=== PATIENT | female | born 1960 | race Caucasian/White ===

== ENCOUNTER 2017-11-09 18:19 | Outpatient (REF) | payer MEDICARE, MEDICAID, SELFPAY ==
[2017-11-09 21:49] LABS: TSH (W/Ref FT4) 3.96 uIU/mL (0.358-3.74); Uric Acid 7.2 mg/dL (2.6-6.0)
[2017-11-09 22:15] LABS: FREE T4 1.19 ng/dL (0.76-1.46)
== END 2017-11-09 18:20 ==
LOC: NCHCN 18:19
PROVIDERS: PCP Family Medicine; Visit Provider Family Medicine
DX: E03.9 Hypothyroidism, unspecified (principal); M13.80 Other specified arthritis, unspecified site
CPT/HCPCS: 84439; 84443; 84550

== ENCOUNTER 2018-08-08 12:30 | Outpatient (REF) | payer MEDICARE, MEDICAID, SELFPAY ==
[2018-08-08 21:23] LABS: ALT 38 U/L (12-78); AST 28 U/L (15-37); Albumin 3.3 g/dL (3.4-5.0); Alkaline Phosphatase 138 U/L (46-116); Anion Gap 5.3 mmol/L (3-11); BUN 16 mg/dL (7-18); Bilirubin, Total 0.3 mg/dL (0.2-1.0); CO2 30.7 mmol/L (21.0-32.0); CREATININE 1.08 mg/dL (0.55-1.02); Calcium 8.9 mg/dL (8.5-10.1); Chloride 106 mmol/L (98-107); Estimated GFR 52.48 (mL/min/1.73m2); Glucose 88 mg/dL (70-100); Potassium 4.9 mmol/L (3.5-5.1); Sodium 142 mmol/L (136-145); TSH (W/Ref FT4) 1.93 uIU/mL (0.358-3.74); Total Protein 7.1 g/dL (6.4-8.2)
[2018-08-08 22:24] LABS: Hemoglobin A1C 5.4 % (4.5-6.2)
== END 2018-08-08 12:50 ==
LOC: NCHCN 12:30
PROVIDERS: PCP Family Medicine; Visit Provider Family Medicine
DX: E03.9 Hypothyroidism, unspecified (principal); R79.89 Other specified abnormal findings of blood chemistry; E66.01 Morbid (severe) obesity due to excess calories
CPT/HCPCS: 80053; 83036; 84443

== ENCOUNTER 2019-08-08 11:53 | Outpatient (REF) | payer MEDICARE, MEDICAID, SELFPAY ==
[2019-08-08 20:26] LABS: Hemoglobin A1C 5.7 % (3.8-5.6)
[2019-08-08 20:30] LABS: TSH 2.44 uIU/mL (0.36-3.74)
== END 2019-08-08 12:13 ==
LOC: NCHCN 11:53
PROVIDERS: PCP Family Medicine; Visit Provider Family Medicine
DX: E03.9 Hypothyroidism, unspecified (principal); R73.09 Other abnormal glucose; Z13.1 Encounter for screening for diabetes mellitus
CPT/HCPCS: 83036; 84443

== ENCOUNTER 2020-01-08 10:44 | Outpatient (REF) | payer MEDICARE, MEDICAID, SELFPAY ==
[2020-01-08 21:51] LABS: Hemoglobin A1C 5.3 % (<5.7)
[2020-01-08 22:09] LABS: ALT 38 U/L (14-59); AST 29 U/L (15-37); Albumin 3.6 g/dL (3.4-5.0); Alkaline Phosphatase 110 U/L (46-116); Anion Gap 3.5 mmol/L (3-11); BUN 18 mg/dL (7-18); Bilirubin, Total 0.6 mg/dL (0.2-1.0); CO2 32.5 mmol/L (21.0-32.0); CREATININE 1.06 mg/dL (0.55-1.02); Calcium 9.4 mg/dL (8.5-10.1); Calculated LDL 116 mg/dL (<100); Chloride 106 mmol/L (98-107); Cholesterol 183 mg/dL (<200); Estimated GFR 53.43 (mL/min/1.73m2); Glucose 92 mg/dL (74-106); HDL Cholesterol 47 mg/dL (40-60); Potassium 4.2 mmol/L (3.5-5.1); Sodium 142 mmol/L (136-145); Total Protein 7.2 g/dL (6.4-8.2); Triglyceride 104 mg/dL (<150)
== END 2020-01-08 11:04 ==
LOC: NCHCN 10:44
PROVIDERS: PCP Family Medicine; Visit Provider Family Medicine
DX: R73.03 Prediabetes (principal); M10.9 Gout, unspecified; E03.9 Hypothyroidism, unspecified
CPT/HCPCS: 80053; 80061; 83036; 84550

== ENCOUNTER 2020-02-05 12:00 | Outpatient (REF) | payer MEDICARE, MEDICAID, SELFPAY ==
[2020-02-05 22:45] LABS: Uric Acid 4.5 mg/dL (2.6-6.0)
== END 2020-02-05 12:20 ==
LOC: NCHCN 12:00
PROVIDERS: PCP Family Medicine; Visit Provider Family Medicine
DX: M10.9 Gout, unspecified (principal)
CPT/HCPCS: 84550

== ENCOUNTER 2021-01-09 11:46 | Outpatient (REF) | payer MEDICARE, MEDICAID, SELFPAY ==
[2021-01-09 14:44] LABS: ALT 46 U/L (14-59); AST 37 U/L (15-37); Albumin 3.4 g/dL (3.4-5.0); Alkaline Phosphatase 143 U/L (46-116); Anion Gap 4.6 mmol/L (3-11); BUN 18 mg/dL (7-18); Bilirubin, Total 0.4 mg/dL (0.2-1.0); CO2 32.4 mmol/L (21.0-32.0); CREATININE 1.1 mg/dL (0.55-1.02); Calcium 9.1 mg/dL (8.5-10.1); Chloride 105 mmol/L (98-107); Estimated GFR 51.02 (mL/min/1.73m2); Glucose 73 mg/dL (74-106); Potassium 4.6 mmol/L (3.5-5.1); Sodium 142 mmol/L (136-145); TSH 4.64 uIU/mL (0.36-3.74); Total Protein 7.4 g/dL (6.4-8.2); Uric Acid 5.3 mg/dL (2.6-6.0)
[2021-01-09 16:40] LABS: Calculated LDL 133 mg/dL (<100); Cholesterol 219 mg/dL (<200); HDL Cholesterol 68 mg/dL (40-60); Triglyceride 91 mg/dL (<150)
== END 2021-01-09 11:47 | disposition home or self-care (01) ==
LOC: NCHCN 11:46
PROVIDERS: PCP Family Medicine; Visit Provider Family Medicine
DX: E03.9 Hypothyroidism, unspecified (principal); E78.5 Hyperlipidemia, unspecified; E66.01 Morbid (severe) obesity due to excess calories; M10.9 Gout, unspecified; Z00.00 Encounter for general adult medical examination without abnormal findings
CPT/HCPCS: 80053; 80061; 84443; 84550

== ENCOUNTER 2021-06-03 16:56 | Outpatient (REF) | payer MEDICARE, MEDICAID, SELFPAY | END 2021-06-03 16:57 | disposition home or self-care (01) | LOC: NCHCN 16:56 | PROVIDERS: PCP Family Medicine; Visit Provider Family Medicine | DX: E03.9 Hypothyroidism, unspecified (principal) | CPT/HCPCS: 84443 ==

== ENCOUNTER 2022-05-17 13:53 | Outpatient (REF) | payer MEDICARE, MEDICAID, SELFPAY ==
[2022-05-17 14:55] LABS: Hemoglobin A1C 5.3 % (<5.7)
[2022-05-17 15:05] LABS: Anion Gap 5.2 mmol/L (3-11); BUN 22 mg/dL (7-18); CO2 30.8 mmol/L (21.0-32.0); CREATININE 1.2 mg/dL (0.55-1.02); Calcium 9.3 mg/dL (8.5-10.1); Calculated LDL 104 mg/dL (<100); Chloride 105 mmol/L (98-107); Cholesterol 188 mg/dL (<200); Estimated GFR 52.14 (mL/min/1.73m2); Glucose 87 mg/dL (74-106); HDL Cholesterol 57 mg/dL (40-60); Potassium 4.8 mmol/L (3.5-5.1); Sodium 141 mmol/L (136-145); Triglyceride 135 mg/dL (<150)
[2022-05-17 15:16] LABS: Uric Acid 4.5 mg/dL (2.6-6.0)
== END 2022-05-17 13:54 | disposition home or self-care (01) ==
LOC: NCHCN 13:53
PROVIDERS: PCP Family Medicine; Visit Provider Family Medicine
DX: E78.5 Hyperlipidemia, unspecified (principal); R73.09 Other abnormal glucose; M10.9 Gout, unspecified; E66.9 Obesity, unspecified; E03.9 Hypothyroidism, unspecified
CPT/HCPCS: 80048; 80061; 83036; 84443; 84550

== ENCOUNTER 2023-03-24 17:34 | Outpatient (REF) | payer MEDICARE, MEDICAID, SELFPAY ==
[2023-03-24 22:12] LABS: BUN 20 mg/dL (7-18); CREATININE 1.1 mg/dL (0.55-1.02); Calcium 9.4 mg/dL (8.5-10.1); Chloride 105 mmol/L (98-107); Estimated GFR 57.52 (mL/min/1.73m2); Glucose 100 mg/dL (74-106); Potassium 4.6 mmol/L (3.5-5.1); Sodium 140 mmol/L (136-145); TSH 0.91 uIU/mL (0.36-3.74)
== END 2023-03-24 17:35 | disposition home or self-care (01) ==
LOC: NCHCN 17:34
PROVIDERS: PCP Family Medicine; Visit Provider Family Medicine
DX: E03.9 Hypothyroidism, unspecified (principal); N18.30 Chronic kidney disease, stage 3 unspecified
CPT/HCPCS: 80048; 84443

== ENCOUNTER 2024-08-22 08:45 | Outpatient (REF) | payer MEDICARE, MEDICAID, SELFPAY ==
[2024-08-22 18:45] LABS: Calculated LDL 127 mg/dL (<100); Cholesterol 204 mg/dL (<200); HDL Cholesterol 60 mg/dL (>or=50); TSH (W/Ref FT4) 0.14 uIU/mL (0.36-3.74); Triglyceride 89 mg/dL (<150)
[2024-08-22 19:05] LABS: FREE T4 1.37 ng/dL (0.76-1.46)
[2024-08-23 18:25] LABS: T3, Total 226 ng/dL (97-169)
== END 2024-08-22 08:46 | disposition home or self-care (01) ==
LOC: NCHCN 08:45
PROVIDERS: PCP Family Medicine; Visit Provider Family Medicine
DX: E78.5 Hyperlipidemia, unspecified (principal); E03.9 Hypothyroidism, unspecified
CPT/HCPCS: 80061; 84439; 84443; 84480

== ENCOUNTER 2024-10-11 14:39 | Outpatient (REF) | payer MEDICARE, MEDICAID, SELFPAY ==
[2024-10-11 15:24] LABS: TSH 0.20 uIU/mL (0.36-3.74)
== END 2024-10-11 14:40 | disposition home or self-care (01) ==
LOC: NCHCN 14:39
PROVIDERS: PCP Family Medicine; Visit Provider Family Medicine
DX: E03.9 Hypothyroidism, unspecified (principal)
CPT/HCPCS: 84443

== ENCOUNTER 2024-11-19 15:18 | Outpatient (REF) | payer MEDICARE, MEDICAID, SELFPAY ==
[2024-11-19 18:28] LABS: TSH 0.22 uIU/mL (0.36-3.74)
== END 2024-11-19 15:19 | disposition home or self-care (01) ==
LOC: NCHCN 15:18
PROVIDERS: PCP Family Medicine; Visit Provider Family Medicine
DX: E03.9 Hypothyroidism, unspecified (principal)
CPT/HCPCS: 84443

== ENCOUNTER 2024-12-25 15:08 | Outpatient (REF) | payer MEDICARE, MEDICAID, SELFPAY ==
[2024-12-25 15:31] LABS: TSH 1.79 uIU/mL (0.36-3.74)
== END 2024-12-25 15:09 | disposition home or self-care (01) ==
LOC: NCHCN 15:08
PROVIDERS: PCP Family Medicine; Visit Provider Family Medicine
DX: E03.9 Hypothyroidism, unspecified (principal)
CPT/HCPCS: 84443